=== PATIENT | female | born 1935 | race Caucasian/White ===

== ENCOUNTER → 2017-08-21 | Outpatient (CLI) | payer MEDICARE, OTHER ==
[~2017-08-21] MED LIST: ALP5 PO; ALPR-699 PO; AMOX-559 PO; ASPI-1441 PO; ATEN-1 PO; CALC-685 PO; CYCL1DRO6 OP; FISH OIL; GLUC500C29 PO; HYDR-4309 PO; IBAN150T6 PO; IBUP-1618 PO; IBUP200C71 PO; LOR5/325 PO; LOSA-31 PO; LOSA25TA50 PO; MIRT7.5T2 PO; MULT-1335 PO; OXYGENHOME INH; PAN40 PO; POTA10CA40 PO; POTA20PA10 PO; UBID30CA27 PO; VITAMIN B6
[2017-08-21 13:11] LABS: PLATELET COUNT, AUTOMATED 199 K/uL (150-450)
== END ==
LOC: LAB 12:22
PROVIDERS: ATTEND Family Medicine
DX: R03.0 Elevated blood-pressure reading, without diagnosis of hypertension (principal); R53.83 Other fatigue
CPT/HCPCS: 36415; 82040; 82247; 82310; 82374; 82435; 82565; 82947; 83735; 84075; 84132; 84155; 84295; 84443; 84450; 84460; 84520; 85025

== ENCOUNTER → 2017-08-22 | Outpatient (CLI) | payer MEDICARE, OTHER | LOC: LAB 10:14 | PROVIDERS: ATTEND Family Medicine | DX: E87.6 Hypokalemia (principal) | CPT/HCPCS: 36415; 84132 ==

== ENCOUNTER → 2017-08-25 | Outpatient (CLI) | payer MEDICARE, OTHER | LOC: LAB 10:11 | PROVIDERS: ATTEND Family Medicine | DX: E87.6 Hypokalemia (principal) | CPT/HCPCS: 36415; 84132 ==

== ENCOUNTER → 2017-09-08 | Outpatient (CLI) | payer MEDICARE, OTHER | LOC: LAB 13:49 | PROVIDERS: ATTEND Family Medicine | DX: E87.6 Hypokalemia (principal) | CPT/HCPCS: 36415; 84132 ==

== ENCOUNTER → 2017-09-23 | Outpatient (CLI) | payer MEDICARE, OTHER | LOC: LAB 15:27 | PROVIDERS: ATTEND Family Medicine | DX: E87.6 Hypokalemia (principal) | CPT/HCPCS: 36415; 84132 ==

== ENCOUNTER → 2017-10-15 | Outpatient (CLI) | payer MEDICARE, OTHER | LOC: LAB 15:28 | PROVIDERS: ATTEND Family Medicine | DX: E87.6 Hypokalemia (principal) | CPT/HCPCS: 36415; 84132 ==

== ENCOUNTER → 2017-10-30 | Outpatient (CLI) | payer MEDICARE, OTHER ==
[~2017-10-30] MED LIST changes: +IBUP-136 PO; -IBUP200C71 PO
== END ==
LOC: LAB 12:52
PROVIDERS: ATTEND Family Medicine
DX: I10 Essential (primary) hypertension (principal)
CPT/HCPCS: 36415; 82310; 82374; 82435; 82565; 82947; 84132; 84295; 84520

== ENCOUNTER → 2017-12-15 | Outpatient (CLI) | payer MEDICARE, OTHER ==
[~2017-12-15] MED LIST changes: -POTA20PA10 PO; +POTA20PA31 PO
[2017-12-15 16:26] LABS: PLATELET COUNT, AUTOMATED 247 K/uL (150-450)
== END ==
LOC: LAB 16:07
PROVIDERS: ATTEND Family Medicine
DX: R41.3 Other amnesia (principal); E55.9 Vitamin D deficiency, unspecified; I10 Essential (primary) hypertension
CPT/HCPCS: 36415; 82040; 82247; 82306; 82310; 82374; 82435; 82565; 82607; 82947; 84075; 84132; 84155; 84295; 84443; 84450; 84460; 84520; 85025

== ENCOUNTER → 2018-01-26 | Outpatient (CLI) | payer MEDICARE, OTHER ==
[~2018-01-26] MED LIST changes: -LOSA25TA50 PO; +LOSA25TA52 PO; +LOSA50TA74 PO
== END ==
LOC: LAB 13:47
PROVIDERS: ATTEND Family Medicine
DX: I10 Essential (primary) hypertension (principal)
CPT/HCPCS: 36415; 82310; 82374; 82435; 82565; 82947; 84132; 84295; 84520

== ENCOUNTER → 2018-03-04 | Outpatient (CLI) | payer MEDICARE, OTHER ==
[~2018-03-04] MED LIST changes: +AMLO2.5T76 PO; +FLU180SY11 IM; -HYDR-4309 PO; +HYDR-653 PO; +LOSA100T69 PO; +PNEU0.5D3 IM
== END ==
LOC: LAB 15:02
PROVIDERS: ATTEND Family Medicine
DX: E87.6 Hypokalemia (principal)
CPT/HCPCS: 36415; 82310; 82374; 82435; 82565; 82947; 84132; 84295; 84520

== ENCOUNTER → 2018-07-27 | Outpatient (CLI) | payer MEDICARE, OTHER ==
[~2018-07-27] MED LIST changes: -AMLO2.5T76 PO; +AMLO2.5T78 PO; -LOSA100T69 PO; +LOSA100T75 PO; -LOSA25TA52 PO; +LOSA25TA57 PO; -LOSA50TA74 PO; +LOSA50TA80 PO
[2018-07-27 15:47] LABS: PLATELET COUNT, AUTOMATED 212 K/uL (150-450)
== END ==
LOC: LAB 15:14
PROVIDERS: ATTEND Family Medicine
DX: I10 Essential (primary) hypertension (principal)
CPT/HCPCS: 36415; 82310; 82374; 82435; 82565; 82947; 84132; 84295; 84520; 85025

== ENCOUNTER → 2018-09-25 | Outpatient (CLI) | payer MEDICARE ==
[~2018-09-25] MED LIST changes: +CEPH500C24 PO
== END ==
LOC: LAB 14:52
PROVIDERS: ATTEND Nurse Practitioner Primary Care
DX: L03.031 Cellulitis of right toe (principal)
CPT/HCPCS: 87070

== ENCOUNTER → 2018-09-30 | Outpatient (CLI) | payer MEDICARE ==
[~2018-09-30] MED LIST changes: +CLIN300C99 PO
[2018-09-30 15:18] LABS: PLATELET COUNT, AUTOMATED 226 K/uL (150-450)
== END ==
LOC: LAB 15:01
PROVIDERS: ATTEND Nurse Practitioner Primary Care
DX: L03.116 Cellulitis of left lower limb (principal)
CPT/HCPCS: 36415; 85025; 85651; 86140

== ENCOUNTER → 2018-10-06 | Outpatient (CLI) | payer MEDICARE ==
[~2018-10-06] MED LIST changes: +GADOBENATE 529MG/1ML 15ML VIAL IVP ONE
--- NOTE | 2018-10-06 17:57 | RADIOLOGY IMAGING REPORT ---
FACILITY: [facility] - [place] PATIENT NAME: Brian Funk : 1935 MR: [id number] V: [id number] EXAM DATE: ORDERING PHYSICIAN: ATIYA MONTANO TECHNOLOGIST: Location: [facility] [place] Patient: Brian Funk : 1935 Visit/Account:[id number] Date of Sevice: 10/06/2018 MRI right foot with and without contrast Indication: Cellulitis right 1st and 2nd toe. Pain. Comparison: None available Technique: Multiplanar multisequence MR images were obtained through the right foot. A total of 11 mL IV MultiHance contrast was administered. Findings: Lisfranc ligament is intact and unremarkable. 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 There is enhancement and increased signal within the distal phalanx of the 1st digit with overlying s oft tissue swelling and edema concerning for cellulitis with concomitant early osteomyelitis of the d istal phalanx. Remainder of the osseous structures of the midfoot and forefoot show no acute osseous abnormality or aggressive osseous lesion. Visualized flexor and extensor tendons overall intact and unremarkable. There are mild osteoarthritic changes of the 1st MTP joint as well. IMPRESSION: 1. Findings concerning for early osteomyelitis of the distal phalanx of the 1st digit with adjacent c ellulitis. Report Dictated By: Rahat Carreno MD at 10/06/2018 5:49 PM Report E-Signed By: Rahat Carreno MD at 10/06/2018 5:52 PM [id number]
== END ==
LOC: MRI 01:07
PROVIDERS: ATTEND Nurse Practitioner Primary Care
DX: L03.115 Cellulitis of right lower limb (principal)
CPT/HCPCS: 73720; A9577

== ENCOUNTER → 2018-11-11 | Outpatient (CLI) | payer MEDICARE ==
[~2018-11-11] MED LIST changes: +DOXY-179 PO; -GADOBENATE 529MG/1ML 15ML VIAL IVP ONE; +LEVO750T44 PO; +TRAM-420 PO
[2018-11-11 11:02] LABS: PLATELET COUNT, AUTOMATED 208 K/uL (150-450)
== END ==
LOC: LAB 08:14
PROVIDERS: ATTEND Family Medicine
DX: M86.9 Osteomyelitis, unspecified (principal)
CPT/HCPCS: 36415; 82040; 82247; 82310; 82374; 82435; 82565; 82947; 84075; 84132; 84155; 84295; 84450; 84460; 84520; 85025; 86140